=== PATIENT | female | born 1995 | race Caucasian/White ===

== ENCOUNTER 2020-04-07 21:30 | Emergency (ER) | payer MEDICAID ==
--- NOTE | 2020-04-07 21:56 | EDM.PDOC ---
ED HPI GENERAL MEDICAL PROBLEM - General Chief Complaint: ENT Problem Stated Complaint: dental pain Time Seen by Provider: 04/07/20 21:45 Source of Information: Reports: Patient, RN Notes Reviewed History Limitations: Reports: No Limitations - History of Present Illness INITIAL COMMENTS - FREE TEXT/NARRATIVE: This patient presents to the ED for evaluation of dental pain. She states she has had pain in the lower right back of her teeth for the past 2 weeks. She has not contacted a dentist. She denies fever, other concerns or complaints. She denies recent illnesses including fever, cough, sore throat, or shortness of breath. Onset: Gradual Onset Date: 03/24/20 Duration: Constant, Getting Worse Location: Reports: Face (mouth) Quality: Reports: Ache, Throbbing Improves with: Reports: None, Medication (some improvement with acetaminophen) Worsens with: Reports: None Treatments [employer]: Reports: Acetaminophen, Cold Therapy - Related Data Allergies Allergy/AdvReac Type Severity Reaction Status Date / Time No Known Allergies Allergy Verified 04/07/20 21:40 Home Meds: Home Meds NK [No Known Home Meds] 04/07/20 [History] Social & Family History - Tobacco Use Smoking Status *Q: Current Every Day Smoker Years of Tobacco use: 7 Packs/Tins Daily: 0.5 Used Tobacco, but Quit: No - Caffeine Use Caffeine Use: Reports: Coffee - Recreational Drug Use Recreational Drug Use: No ED ROS GENERAL - Review of Systems Review Of Systems: Comprehensive ROS is negative, except as noted in HPI. ED EXAM, GENERAL - Physical Exam Exam: See Below Exam Limited By: No Limitations General Appearance: Alert, No Apparent Distress Eye Exam: Bilateral Eye: PERRL Ears: Normal External Exam Nose: Normal Inspection Throat/Mouth: Normal Inspection, Normal Oropharynx, Normal Voice, No Airway Compromise, Other (tooth #32 quite tender with tapping; gingiva swollen over contact surface of the tooth. Tooth is intact with no evidence of damage, drainage. No swelling of cheek or face.) Head: Atraumatic, Normocephalic Neck: Normal Inspection, Supple, Full Range of Motion Respiratory/Chest: No Respiratory Distress, No Accessory Muscle Use Extremities: Normal Capillary Refill Neurological: Alert, Oriented Psychiatric: Normal Affect Skin Exam: Warm, Dry, Intact, Normal Color Course - Vital Signs Last Recorded V/S: Last Vital Signs Temp 36.4 C 04/07/20 21:43 Pulse 77 04/07/20 21:43 Resp 18 04/07/20 21:43 BP 114/83 04/07/20 21:43 Pulse Ox 98 04/07/20 21:43 - Re-Assessments/Exams Free Text/Narrative Re-Assessment/Exam: 04/07/20 22:00 This patient presents for evaluation of dental as detailed above. Evaluation today showed swelling of gingiva over tooth 32 that was acutely tender to percussion. There is no evidence of surrounding abscess. There is no evidence of deep space infection of the neck or any sepsis-like syndrome. The patient was offered and accepted a dental block for pain control. This was done with 1.5 mL bupivicaine mixed 1:1 with 1% lidocaine. The patient was strongly advised to seek dental care as soon as possible. I discussed with the patient that these medications did not represent definitive care for the tooth pain and definitive care by a dentist is needed. The patient is aware that I am not a dentist. The patient will return to the ED or emergency department for fever, uncontrolled pain, inability to tolerate PO, or onset of facial swelling. The patient expressed understanding. Departure - Departure Time of Disposition: 22:05 Disposition: Home, Self-Care 01 Condition: Good Clinical Impression: Pain, dental - Discharge Information Forms: ED Department Discharge Sepsis Event Note - Evaluation Sepsis Screening Result: No Definite Risk - Focused Exam Vital Signs: Vital Signs Temp Pulse Resp BP Pulse Ox 04/07/20 21:43 36.4 C 77 18 114/83 98 Date Exam was Performed: 04/07/20 Time Exam was Performed: 21:48
[2020-04-12] MEDS ORDERED: Lidocaine 1% 10 ML MDV INJECT ONE (15:26)
[2020-04-12] MEDS ORDERED: Bupivacaine 0.5% 10 ML SDV INJECT ONE (15:26)
== END 2020-04-07 22:09 | disposition home or self-care (01) ==
LOC: LB.ED 21:30
DX: K08.89 Other specified disorders of teeth and supporting structures (principal); F17.210 Nicotine dependence, cigarettes, uncomplicated
CPT/HCPCS: 64400; 99282-25

== ENCOUNTER 2020-04-09 22:03 | Emergency (ER) | payer MEDICAID ==
[2020-04-09] MEDS ORDERED: Acetaminophen/oxyCODONE 325-5 MG Tab ONE (22:10)
[2020-04-09] MEDS ORDERED: Acetaminophen/HYDROcodone 325-5 MG Tab PO ONE (22:18)
--- NOTE | 2020-04-09 22:27 | EDM.PDOC ---
ED HPI GENERAL MEDICAL PROBLEM - General Chief Complaint: General Stated Complaint: dental pain Time Seen by Provider: 04/09/20 22:25 Source of Information: Reports: Patient, RN Notes Reviewed History Limitations: Reports: No Limitations - History of Present Illness INITIAL COMMENTS - FREE TEXT/NARRATIVE: This patient presents to the ED for evaluation of dental pain. She was seen 48 hours ago for the same concern and was treated with a dental block. She states that it helped for a while but she has remained in a great deal of pain over the weekend. She states she has more swelling this time as well. She denies other concerns or complaints. 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 ED EXAM, GENERAL - Physical Exam Exam: See Below Throat/Mouth: Other ((tooth #32 quite tender with tapping; gingiva significantly swollen over contact surface and around the tooth. Tooth is intact with no evidence of damage, drainage. No swelling of cheek or face. Significant tenderness with palpation of cheek.) Head: Atraumatic, Normocephalic, Facial Tenderness. No: Facial Swelling Neck: Normal Inspection, Full Range of Motion Respiratory/Chest: No Respiratory Distress, No Accessory Muscle Use Neurological: Alert, Oriented Psychiatric: Normal Affect Skin Exam: Warm, Dry, Intact Course - Vital Signs Last Recorded V/S: Last Vital Signs Temp 36.5 C 04/09/20 22:23 Pulse 67 04/09/20 22:23 Resp 18 04/09/20 22:23 BP 141/55 H 04/09/20 22:23 Pulse Ox 96 04/09/20 22:23 - Orders/Labs/Meds Meds: Medications Discontinued Medications Generic Name Dose Route Start Last Admin Trade Name Jordi PRN Reason Stop Dose Admin Hydrocodone Bitart/Acetaminophen 2 tab 04/09/20 22:18 04/09/20 22:19 [place] 325-5 Mg PO 04/09/20 22:19 2 tab ONETIME ONE Administration - Re-Assessments/Exams Free Text/Narrative Re-Assessment/Exam: 04/09/20 22:30 This patient presents for evaluation of dental pain as detailed above. Evaluation today showed significant swelling and tenderness around tooth 32. Tooth was acutely tender to percussion. There is no evidence of surrounding abscess. There is no evidence of deep space infection of the neck or any sepsis- like syndrome. The patient was offered a dental block for pain control but refused stating it only helped for a couple of hours the last time. Patient was given a prescription for Percocet in a limited number for pain control. The patient was strongly advised to seek dental care as soon as possible. The patient is aware that I am not a dentist and that we do not refill pain medications in the ED. The patient will return to the emergency department for fever, uncontrolled pain, inability to tolerate PO, or onset of facial swelling. The patient expressed understanding. Departure - Departure Time of Disposition: 22:40 Disposition: Home, Self-Care 01 Condition: Good Clinical Impression: Pain, dental - Discharge Information Instructions: Acetaminophen; Oxycodone tablets Forms: ED Department Discharge Care Plan Goals: take pain medication as directed and follow up with a dentist tomorrow Sepsis Event Note - Evaluation Sepsis Screening Result: No Definite Risk - Focused Exam Vital Signs: Vital Signs Temp Pulse Resp BP Pulse Ox 04/09/20 22:23 36.5 C 67 18 141/55 H 96 Date Exam was Performed: 04/09/20 Time Exam was Performed: 22:28
== END 2020-04-09 22:35 | disposition home or self-care (01) ==
LOC: LB.ED 22:03
DX: K08.89 Other specified disorders of teeth and supporting structures (principal)
CPT/HCPCS: 99282; A9270-GY

== ENCOUNTER 2020-04-12 04:59 | Emergency (ER) | payer MEDICAID ==
[2020-04-12] MEDS ORDERED: Acetaminophen/HYDROcodone 325-5 MG Tab ONE (05:00)
[2020-04-12] MEDS: Ketorolac 60 MG/2 ML SDV IM ONE (05:21)
--- NOTE | 2020-04-12 13:01 | ER ---
HISTORY OF PRESENT ILLNESS: A 24-year-old female who comes in with complaints of dental pain, more precisely involving the wisdom teeth on the lower jaws. She has been seen for this multiple times. She has recently been to a dentist who informed her she needed to see an oral surgeon. The patient has not yet made arrangements to have this done. She is currently taking amoxicillin. She is not taking anything else over the last few hours for pain control, telling me that ibuprofen did not help her. OBJECTIVE: GENERAL APPEARANCE: The patient is awake and alert. No obvious distress. VITAL SIGNS: Reviewed as listed. ORAL: The patient has mild swelling and inflammation around both wisdom teeth on the lower jaws only. The wisdom teeth on the upper jaws do not appear to be causing any issues. I do not see any blister or pustule formation nor drainage. DIAGNOSIS: Impacted wisdom teeth. TREATMENT PLAN: Toradol 60 mg will be given IM. We will also send a few [place] tablets home with her to be taken as needed. I advised the patient she needs to follow up with a primary care provider who can manage her pain control until she has the wisdom teeth removed. She does not yet have a primary care provider, but she tells me she will find one. Diet should be soft food and when these medications run out, I advised the patient to alternate Tylenol with ibuprofen. CRS/MODL /[id number]
== END 2020-04-12 05:31 | disposition home or self-care (01) ==
LOC: LB.ED 04:59
DX: K01.1 Impacted teeth (principal)
CPT/HCPCS: 99282; 99283; A9270-GY; J1885

== ENCOUNTER 2020-04-24 14:25 | Emergency (ER) | payer MEDICAID ==
[2020-04-24] MEDS ORDERED: Ketorolac 60 MG/2 ML SDV IM ONE (15:20)
[2020-04-24] MEDS ORDERED: Ketorolac 30 MG/ML SDV ONE (15:29)
--- NOTE | 2020-04-24 15:42 | EDM.PDOC ---
ED HPI GENERAL MEDICAL PROBLEM - General Chief Complaint: General Stated Complaint: TOOTH PAIN x1.5 MONTHS Time Seen by Provider: 04/24/20 14:40 Source of Information: Reports: Patient History Limitations: Reports: No Limitations - History of Present Illness INITIAL COMMENTS - FREE TEXT/NARRATIVE: Patient presents emergency department with dental pain to her left upper premolar, patient states that this tooth broke about 2 to 3 months ago but did not start hurting until about 2 days ago. Patient states that she was seen by dentist sometime last week and was placed on amoxicillin but has not taken it yet as she is concerned about the side effects regarding her contraception, patient states only pain when tooth is exposed to air, cold foods or liquid. Patient denies fevers, chills, nausea, vomiting, difficulty with chewing, difficulty swallowing. 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 ED EXAM, GENERAL - Physical Exam Exam: See Below Exam Limited By: No Limitations General Appearance: Alert, WD/WN Throat/Mouth: Normal Lips, Normal Gums, Normal Oropharynx, Normal Voice, No Airway Compromise, Other (2nd premolar is broken with exposed dentin) Head: Atraumatic, Normocephalic Neck: Normal Inspection Respiratory/Chest: No Respiratory Distress, Normal Breath Sounds, No Accessory Muscle Use ED GENERAL MEDICAL PROCEDURES - Additional/Other Procedure(s) Other (Free Text) Procedure(s): Dental Block: Consent for operation or procedure: Risks and benefits discussed with patient and consent obtained Anesthesia: 3 ml of Bupivicaine The distribution of the middle superior alveolar and greater palatine nerve was identified. Bupivacaine was injected into that region. A short time later ad equate analgesia was obtained. Estimated Blood Loss: minimal Complications: The patient tolerated the procedure well without complications. Course - Vital Signs Last Recorded V/S: Last Vital Signs Temp 98 F 04/24/20 14:41 Pulse 102 H 04/24/20 14:41 Resp 18 04/24/20 14:41 BP 131/87 04/24/20 14:41 Pulse Ox 98 04/24/20 14:41 - Orders/Labs/Meds Meds: Medications Discontinued Medications Generic Name Dose Route Start Last Admin Trade Name Jordi PRN Reason Stop Dose Admin Ketorolac Tromethamine 15 mg 04/24/20 15:20 04/24/20 15:23 Toradol IM 04/24/20 15:21 15 mg ONETIME ONE Administration Ketorolac Tromethamine Confirm 04/24/20 15:29 04/24/20 15:24 Toradol Administered 04/24/20 15:30 Not Given Dose 30 mg .ROUTE .STK-MED ONE Departure - Departure Time of Disposition: 15:32 Disposition: Home, Self-Care 01 Condition: Good Clinical Impression: Broken tooth - Discharge Information *PRESCRIPTION DRUG MONITORING PROGRAM REVIEWED*: Yes *COPY OF PRESCRIPTION DRUG MONITORING REPORT IN PATIENT MACK: No Instructions: Tooth Injuries, [id number] Referrals: PCP,None [Primary Care Provider] - Forms: ED Department Discharge Additional Instructions: dental block with bupivicaine toradol take 440mg naproxen/Aleve twice a day for pain tylenol 1000mg four times a day for pain "Dental wax" at the pharmacy. make a pea sized ball and then place it in your tooth to cover nerve endings. follow up with a dentist for this RICHY for filling, cap, or altogether removal. Sepsis Event Note (ED) - Evaluation Sepsis Screening Result: No Definite Risk - Focused Exam Vital Signs: Vital Signs Temp Pulse Resp BP Pulse Ox 04/24/20 14:41 98 F 102 H 18 131/87 98 - Problem List & Annotations (1) Broken tooth SNOMED Code(s): 80255713 Code(s): S02.5XXA - FRACTURE OF TOOTH (TRAUMATIC), INIT FOR CLOS FX Status: Acute Annotation/Comment:: left side 2nd premolar Qualifiers: Encounter type: initial encounter Qualified Code(s): S02.5XXA - Fracture of tooth (traumatic), initial encounter for closed fracture - Assessment/Plan Assessment:: broken tooth Plan: dental block naproxen see a dentist richy dental wax application advised
== END 2020-04-24 15:37 | disposition home or self-care (01) ==
LOC: LB.ED 14:25
DX: K03.81 Cracked tooth (principal); F17.210 Nicotine dependence, cigarettes, uncomplicated
CPT/HCPCS: 64400; 96372; 99283; J1885

== ENCOUNTER 2020-06-12 11:07 | Emergency (ER) | payer MEDICAID | END 2020-06-12 12:00 | disposition left against medical advice (07) | LOC: LB.ED 11:07 | DX: Z20.828 Contact with and (suspected) exposure to other viral communicable diseases (principal) | CPT/HCPCS: 99281; U0002 ==

== ENCOUNTER 2021-02-06 11:05 | Emergency (ER) | payer MEDICAID ==
[2021-02-06] MEDS ORDERED: Bacitracin Oint 1 GM U/D Packet TOP ONE (11:19)
[2021-02-06] MEDS ORDERED: Diphtheria,Pertussis(Acell),Tetanus Vaccine 0.5 ML SDV IM ONE (11:19)
--- NOTE | 2021-02-06 11:26 | EDM.PDOC ---
ED HPI GENERAL MEDICAL PROBLEM - General Stated Complaint: LACERATION LEFT FOOT Time Seen by Provider: 02/06/21 11:10 Source of Information: Reports: Patient History Limitations: Reports: No Limitations - History of Present Illness INITIAL COMMENTS - FREE TEXT/NARRATIVE: patient presented to the ER with a c/o right foot pain after she stepped on a sharp edge while walking barefoot at home. She applied pressure on it and decided to come to the ER because of the pain. 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: Social & Family History - Caffeine Use Caffeine Use: Reports: Soda Review of Systems - Review of Systems Review Of Systems: See Below Constitutional: Reports: No Symptoms Eyes: Reports: No Symptoms Ears: Reports: No Symptoms Respiratory: Reports: No Symptoms Cardiovascular: Reports: No Symptoms GI/Abdominal: Reports: No Symptoms Musculoskeletal: Reports: No Symptoms ED EXAM, GENERAL - Physical Exam Exam: See Below Exam Limited By: No Limitations General Appearance: Alert, WD/WN, Anxious Head: Atraumatic Neck: Normal Inspection Respiratory/Chest: No Respiratory Distress Cardiovascular: Normal Peripheral Pulses Neurological: Alert, Oriented, Normal Cognition, No Motor/Sensory Deficits Skin Exam: Other (there is 2 cm superficial skin wound to the bottom of the right foot.) Course - Orders/Labs/Meds Orders: Active Orders 24 hr Category Date Time Status Vaccines to be Administered [RC] PER UNIT ROUTINE Care 02/06/21 11:20 Ordered Meds: Medications Discontinued Medications Generic Name Dose Route Start Last Admin Trade Name Freq PRN Reason Stop Dose Admin Bacitracin 1 dose 02/06/21 11:19 Bacitracin Oint 1 Gm U/D Packet TOP 02/06/21 11:20 ONETIME ONE Diphtheria/Tetanus/Acell Pertussis 0.5 ml 02/06/21 11:19 Diphtheria,Pertussis(Acell),Tetanus Vaccine 0.5 Ml Sdv IM 02/06/21 11:20 .ONCE ONE - Re-Assessments/Exams Free Text/Narrative Re-Assessment/Exam: 02/06/21 11:23 wound was washed and cleaned due to the superficial nature of the wound - no indication for sutures abx ointment was applied kerlex dressing Departure - Departure Time of Disposition: 11:24 Disposition: Home, Self-Care 01 Condition: Good Clinical Impression: Laceration of skin - Discharge Information *PRESCRIPTION DRUG MONITORING PROGRAM REVIEWED*: Not Applicable *COPY OF PRESCRIPTION DRUG MONITORING REPORT IN PATIENT MACK: Not Applicable Referrals: PCP,None [Primary Care Provider] - - Problem List & Annotations (1) Laceration of skin SNOMED Code(s): 927565637 Code(s): [id number] - Status: Acute Priority: Low Current Visit: Yes - Problem List Review Problem List Initiated/Reviewed/Updated: Yes - My Orders Last 24 Hours: My Active Orders 02/06/21 11:20 Vaccines to be Administered [RC] PER UNIT ROUTINE - Assessment/Plan Last 24 Hours: My Active Orders 02/06/21 11:20 Vaccines to be Administered [RC] PER UNIT ROUTINE Plan: - keep clean dressing on the wound daily - apply abx ointment - tylenol for pain as needed
== END 2021-02-06 11:45 | disposition home or self-care (01) ==
LOC: LB.ED 11:09
DX: S91.301A Unspecified open wound, right foot, initial encounter (principal); W26.8XXA Contact with other sharp object(s), not elsewhere classified, initial encounter; Y92.009 Unspecified place in unspecified non-institutional (private) residence as the place of occurrence of the external cause
CPT/HCPCS: 99282

== ENCOUNTER 2021-09-06 07:50 | Emergency (ER) | payer MEDICAID ==
--- NOTE | 2021-09-06 08:28 | EDM.PDOC ---
ED HPI GENERAL MEDICAL PROBLEM - General Chief Complaint: Gastrointestinal Problem Stated Complaint: VOMITTING Time Seen by Provider: 09/06/21 08:15 Source of Information: Reports: Patient, RN Notes Reviewed History Limitations: Reports: No Limitations - History of Present Illness INITIAL COMMENTS - FREE TEXT/NARRATIVE: This patient presents to the emergency department for evaluation of cough. She states she has had a cough for several days and has been having coughing episodes that have ended with vomiting. She has not had any vomiting exclusive to the cough. She has not had a fever with this. Her appetite is good and she is drinking fluids. She denies any diarrhea. She is a smoker. 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 ED EXAM, GI/ABD - Physical Exam Exam: See Below Exam Limited By: No Limitations General Appearance: Alert, No Apparent Distress Eyes: Bilateral: Normal Appearance Ears: Normal External Exam, Normal Canal, Normal TMs Nose: Normal Inspection Throat/Mouth: Normal Inspection, Normal Oropharynx, No Airway Compromise Head: Atraumatic, Normocephalic Neck: Normal Inspection, Supple, Non-Tender, Full Range of Motion Respiratory/Chest: No Respiratory Distress, Lungs Clear, Normal Breath Sounds, No Accessory Muscle Use, Other (No cough heard) Extremities: Normal Range of Motion Neurological: Alert, Oriented Psychiatric: Normal Affect, Normal Mood Skin Exam: Warm, Dry, Intact, Normal Color Course - Vital Signs Last Recorded V/S: Last Vital Signs Temp 36.6 C 09/06/21 08:00 Pulse 87 09/06/21 08:00 Resp 18 09/06/21 08:00 BP 108/68 09/06/21 08:00 Pulse Ox 96 09/06/21 08:00 - Re-Assessments/Exams Free Text/Narrative Re-Assessment/Exam: 09/06/21 11:18 This patient presents to the emergency department for evaluation of a cough. This dry cough is most consistent with an upper respiratory tract infection exacerbated by smoking. There are no signs at this time of other serious bacterial infection such as otitis media, retropharyngeal abscess, epiglottitis, peritonsillar abscess, strep pharyngitis, pneumonia, sinusitis, meningitis, bacteremia. Given her clear lungs, no fever, no hypoxia and no respiratory distress I do not feel she needs a chest x-ray at this point. The probability of a serious bacterial infection or pneumonia is very unlikely. There are no concerning gastrointestinal symptoms at this point and no signs of dehydration. She was given a prescription for an albuterol MDI to be used as needed 4 times a day for the next several days. She should follow-up with her primary care provider in 2 to 3 days if she is not better, sooner if she is worse in any way. Departure - Departure Time of Disposition: 08:30 Disposition: Home, Self-Care 01 Clinical Impression: Viral illness, Gastroenteritis - Discharge Information *PRESCRIPTION DRUG MONITORING PROGRAM REVIEWED*: Not Applicable *COPY OF PRESCRIPTION DRUG MONITORING REPORT IN PATIENT MACK: Not Applicable Prescriptions: Albuterol [Proventil HFA] 200 puff INH Q4H 5 Days #1 ea Instructions: Viral Gastroenteritis, Adult, [id number] Referrals: PCP,None [Primary Care Provider] - Forms: ED Department Discharge Sepsis Event Note (ED) - Evaluation Sepsis Screening Result: No Definite Risk - Focused Exam Vital Signs: Vital Signs Temp Temp Pulse Resp BP Pulse Ox 09/06/21 08:00 36.6 C 36.6 C 87 18 108/68 96
== END 2021-09-06 08:42 | disposition home or self-care (01) ==
LOC: LB.ED 07:50
DX: B34.9 Viral infection, unspecified (principal); K52.9 Noninfective gastroenteritis and colitis, unspecified; Z72.0 Tobacco use
CPT/HCPCS: 99283

== ENCOUNTER 2021-10-02 07:58 | Emergency (ER) | payer MEDICAID ==
[2021-10-02] MEDS ORDERED: Morphine 2 MG/ML SYRINGE IVPUSH PRN (08:13)
[2021-10-02] MEDS ORDERED: Morphine 2 MG/ML SYRINGE IVPUSH ONE (08:14)
[2021-10-02] MEDS ORDERED: Morphine 2 MG/ML SYRINGE ONE ×2 (08:25→08:48)
[2021-10-02] MEDS ORDERED: Ondansetron 4 MG/2 ML SDV ONE (08:25)
[2021-10-02] MEDS ORDERED: Ketorolac 30 MG/ML SDV IVPUSH ONE (08:46)
[2021-10-02] MEDS ORDERED: Tamsulosin 0.4 MG Cap.ER PO ONE (08:47)
[2021-10-02] MEDS: HYDROmorphone 2 MG/ML SDV IVPUSH ONE ×2 (08:52→09:19)
[2021-10-02] MEDS ORDERED: Sodium Chloride 0.9% 500 ML IV ONE (08:54)
[2021-10-02] MEDS ORDERED: HYDROmorphone 2 MG/ML SDV ONE ×2 (08:57→10:16)
[2021-10-02] MEDS ORDERED: Ketorolac 30 MG/ML SDV ONE (08:57)
[2021-10-02] MEDS ORDERED: Sodium Chloride 0.9% 500 ML IV SCH (09:00)
--- NOTE | 2021-10-02 09:06 | CT ---
DATE OF SERVICE: 10/02/2021 CLINICAL DATA: Renal Calculi Unenhanced abdomen and pelvic CT: Multi slice acquisition through the abdomen and pelvis without IV or oral contrast was performed. No priors. The lung bases are clear. The unenhanced liver appears normal. The gallbladder appears normal. The spleen appears normal. The pancreas appears normal. The right and left adrenals appear normal. No nephrocalcinosis or nephrolithiasis. There is a 4 mm distal ureteral calculi on the right located at the S2 level. No significant hydronephrosis or hydroureter proximal to it. There is a small amount of fluid within the bladder. It appears normal. No evidence of appendicitis. No free air. No free fluid. No dilated loops of bowel. No adenopathy. No aortic aneurysm. There is a small fat containing umbilical hernia. No other significant findings. Impression: 4 mm distal right ureteral calculi. MTDD
--- NOTE | 2021-10-02 09:54 | EDM.PDOC ---
ED HPI GENERAL MEDICAL PROBLEM - General Chief Complaint: Abdominal Pain Stated Complaint: BACK PAIN Time Seen by Provider: 10/02/21 08:00 Source of Information: Reports: Patient History Limitations: Reports: No Limitations - History of Present Illness INITIAL COMMENTS - FREE TEXT/NARRATIVE: 26-year-old female presents the ED complaining of right flank and back pain. Patient has had pain for approximately 2 days. It was an acute onset. Movement makes it worse, urination makes it worse. Patient describes a sharp stabbing pain as a 10/10 on the pain scale. Pain radiates around to the flank and abdomen inferiorly. Positive for: Nausea vomiting, diaphoresis, shortness of breath due to pain. Patient denies any other complaints. 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) Right Abdomen Pain Score (Numeric/FACES): 10 - Related Data Allergies Allergy/AdvReac Type Severity Reaction Status Date / Time No Known Allergies Allergy Verified 10/02/21 08:34 Home Meds: Home Meds Albuterol [Proventil HFA] 200 puff INH ASDIRECTED PRN 10/02/21 [History] HYDROmorphone [Dilaudid] 2 mg PO Q4H PRN #16 tab 10/02/21 [Rx] Ondansetron [Zofran ODT] 4 mg PO Q6H PRN #10 tab.dis 10/02/21 [Rx] Tamsulosin [Flomax] 0.4 mg PO DAILY #14 cap.er 10/02/21 [Rx] Past Medical History - Past Health History Medical/Surgical History: Denies Medical/Surgical History Cardiovascular History: Reports: None Genitourinary History: Reports: Pyelonephritis Other Genitourinary History: stents placed for kidney stones "3 years ago, and was removed in 2018 at the time of for 2nd child" DATA TYPIST History: Reports: Other DATA TYPIST History: - Past Surgical History Female Surgical History: Reports: Cystoscopy, Ureteral Stent Social & Family History - Family History Family Medical History: Unobtainable - Tobacco Use Tobacco Use Status *Q: Current Every Day Tobacco User Years of Tobacco use: 9 Packs/Tins Daily: 0.5 - Caffeine Use Caffeine Use: Reports: Soda - Recreational Drug Use Recreational Drug Use: Yes Drug Use in Last 12 Months: Yes Recreational Drug Type: Reports: Marijuana/Hashish Recreational Drug Use Frequency: Daily ED ROS GENERAL - Review of Systems Review Of Systems: Comprehensive ROS is negative, except as noted in HPI. ED EXAM, RENAL/ - Physical Exam Exam: See Below Text/Narrative:: 26-year-old female found in [place] 1 ED. Patient lying in semifowler position. ABCs intact. Patient in obvious distress secondary to pain. Speaking in full sentences. No obvious trauma, alert and oriented through 3 GCS 4 5 6. Exam Limited By: No Limitations General Appearance: Alert, WD/WN, No Apparent Distress Eye Exam: Bilateral Eye: EOMI, PERRL Ears: Normal External Exam, Normal Canal, Hearing Grossly Normal, Normal TMs Nose: Normal Inspection, No Blood Throat/Mouth: Normal Lips, Normal Oropharynx, Normal Voice, No Airway Compromise Head: Atraumatic, Normocephalic Respiratory/Chest: No Respiratory Distress, Lungs Clear, Normal Breath Sounds, No Accessory Muscle Use, Chest Non-Tender Cardiovascular: Normal Peripheral Pulses, Regular Rate, Rhythm, No Edema, No Gallop, No JVD, No Murmur, No Rub GI/Abdominal: Soft, No Distention, No Mass, Tender (Right flank, right CVA, right lower quadrant) Back Exam: CVA Tenderness (R) Extremities: Normal Inspection, Normal Range of Motion, Non-Tender, Normal Capillary Refill, No Pedal Edema Neurological: Alert, Oriented Psychiatric: Normal Affect, Tearful Skin Exam: Warm, Dry, Intact, Normal Color, No Rash Lymphatic: No Adenopathy Course - Vital Signs Last Recorded V/S: Last Vital Signs Temp 97.7 F 10/02/21 08:52 Pulse 88 10/02/21 08:52 Resp 16 10/02/21 08:52 BP 135/104 H 10/02/21 08:52 Pulse Ox 92 L 10/02/21 08:52 - Orders/Labs/Meds Orders: Active Orders 24 hr Category Date Time Status CULTURE URINE [RM] Stat Lab 10/02/21 10:20 Received Labs: Laboratory Tests 10/02/21 10/02/21 10/02/21 Range/Units 08:09 08:09 10:20 WBC 7.0 (4.0-11.0) K/uL RBC 4.38 (3.80-5.80) M/uL Hgb 13.6 (11.5-16.5) g/dL Hct 39.3 (37.0-47.0) % MCV 90 (76-96) fL MCH 31.1 (27.0-32.0) pg MCHC 34.6 (31.0-35.0) g/dL RDW 13.8 (11.0-16.0) % Plt Count 241 (150-500) K/uL MPV 10.7 H (6.0-10.0) fL Neut % (Auto) 54.4 (45.0-70.0) % Lymph % (Auto) 35.7 (20.0-40.0) % Dillon % (Auto) 8.8 (3.0-10.0) % Eos % (Auto) 0.7 L (1.0-5.0) % Baso % (Auto) 0.4 (0.0-0.5) % Neut # (Auto) 3.81 (2.00-7.50) K/uL Lymph # (Auto) 2.50 (1.50-4.00) K/uL Dillon # (Auto) 0.62 (0.20-0.80) K/uL Eos # (Auto) 0.05 (0.04-0.40) K/uL Baso # (Auto) 0.03 (0.02-0.10) K/uL Sodium 138 (136-145) mmol/L Potassium 3.7 (3.5-5.1) mmol/L Chloride 105 (98-107) mmol/L Carbon Dioxide 19.5 L (21.0-32.0) mmol/L Anion Gap 17.2 H (5.0-15.0) mmol/L BUN 12 (8-26) mg/dL Creatinine 0.94 (0.55-1.02) mg/dL Est Cr Clr Drug Dosing 88.97 mL/min Estimated GFR (MDRD) > 60 (>60) MLS/MIN BUN/Creatinine Ratio 12.8 (6-25) Glucose 89 (74-100) mg/dL Calcium 9.5 (8.5-10.1) mg/dL Total Bilirubin 0.6 (0.0-1.0) mg/dL AST 38 H (15-37) U/L ALT 53 (12-78) U/L Alkaline Phosphatase 71 (46-116) U/L Total Protein 8.2 (6.4-8.2) g/dL Albumin 4.4 (3.4-5.0) g/dL Globulin 3.8 (2.2-4.2) g/dL Albumin/Globulin Ratio 1.2 (0.8-2.0) Lipase 71 L (73-393) U/L Urine Color Yellow Urine Appearance Clear (CLEAR) Urine pH 7.0 (5.0-8.0) Ur Specific [place] 1.020 (1.003-1.030) Urine Protein Negative (NEGATIVE) mg/dL Urine Glucose (UA) Negative (NEGATIVE) mg/dL Urine Ketones 80 H (NEGATIVE) mg/dL Urine Occult Blood Trace-intact H (NEGATIVE) Urine Nitrite Negative (NEGATIVE) Urine Bilirubin Negative (NEGATIVE) Urine Urobilinogen 0.2 (0.2-1.0) E.U./dL Ur Leukocyte Esterase Trace H (NEGATIVE) Urine RBC 0-5 H /HPF Urine WBC 5-10 H /HPF Ur Squamous Epith Cells Many /HPF Meds: Medications Discontinued Medications Generic Name Dose Route Start Last Admin Trade Name Freq PRN Reason Stop Dose Admin Hydromorphone HCl 2 mg 10/02/21 08:46 10/02/21 09:19 Hydromorphone 2 Mg/Ml Sdv IVPUSH 10/02/21 08:47 1 mg ONETIME ONE Administration Hydromorphone HCl Confirm 10/02/21 08:57 10/02/21 08:56 Hydromorphone 2 Mg/Ml Sdv Administered 10/02/21 08:58 Not Given Dose 2 mg .ROUTE .STK-MED ONE Hydromorphone HCl Confirm 10/02/21 10:16 10/02/21 10:11 Hydromorphone 2 Mg/Ml Sdv Administered 10/02/21 10:17 Not Given Dose 2 mg .ROUTE .STK-MED ONE Hydromorphone HCl 2 mg 10/02/21 10:20 10/02/21 10:23 Hydromorphone 2 Mg/Ml Sdv IVPUSH 10/02/21 10:21 2 mg ONETIME ONE Administration Hydromorphone HCl 2 mg 10/02/21 12:30 10/02/21 13:00 Hydromorphone 2 Mg Tab PO 2 mg Q4H JANIS Administration Hydroxyzine HCl 50 mg 10/02/21 10:20 10/02/21 12:38 Hydroxyzine Hcl 50 Mg/Ml Sdv IM 10/02/21 10:21 Not Given ONETIME ONE Hydroxyzine HCl 50 mg 10/02/21 11:43 10/02/21 13:00 Hydroxyzine Hcl 25 Mg Tab PO 10/02/21 11:44 50 mg ONETIME ONE Administration Sodium Chloride 500 mls @ 999 drops/hr 10/02/21 08:54 10/02/21 08:45 Normal Saline IV 10/02/21 16:24 999 drops/hr .BOLUS ONE Administration Sodium Chloride 500 mls @ 250 mls/hr 10/02/21 09:00 10/02/21 09:22 Normal Saline IV 250 mls/hr ASDIRECTED JANIS Administration Ketorolac Tromethamine 30 mg 10/02/21 08:46 10/02/21 08:49 Ketorolac 30 Mg/Ml Sdv IVPUSH 10/02/21 08:47 30 mg ONETIME ONE Administration Ketorolac Tromethamine Confirm 10/02/21 08:57 10/02/21 08:56 Ketorolac 30 Mg/Ml Sdv Administered 10/02/21 08:58 Not Given Dose 30 mg .ROUTE .STK-MED ONE Morphine Sulfate 2 mg 10/02/21 08:13 10/02/21 08:40 Morphine 2 Mg/Ml Syringe IVPUSH 2 mg ONETIME PRN Administration Abdominal Pain Morphine Sulfate 2 mg 10/02/21 08:14 10/02/21 08:12 Morphine 2 Mg/Ml Syringe IVPUSH 10/02/21 08:15 2 mg ONETIME ONE Administration Morphine Sulfate Confirm 10/02/21 08:25 10/02/21 08:56 Morphine 2 Mg/Ml Syringe Administered 10/02/21 08:26 Not Given Dose 2 mg .ROUTE .STK-MED ONE Morphine Sulfate Confirm 10/02/21 08:48 10/02/21 08:56 Morphine 2 Mg/Ml Syringe Administered 10/02/21 08:49 Not Given Dose 2 mg .ROUTE .STK-MED ONE Ondansetron HCl Confirm 10/02/21 08:25 10/02/21 08:56 Ondansetron 4 Mg/2 Ml Sdv Administered 10/02/21 08:26 Not Given Dose 4 mg .ROUTE .STK-MED ONE Tamsulosin HCl 0.4 mg 10/02/21 08:47 10/02/21 09:04 Tamsulosin 0.4 Mg Cap.Er PO 10/02/21 08:48 0.4 mg ONETIME ONE Administration Departure - Departure Time of Disposition: 11:33 Disposition: Home, Self-Care 01 Clinical Impression: Ureteral stone Abdominal pain Qualifiers: Abdominal location: unspecified location Qualified Code(s): R10.9 - Unspecified abdominal pain - Discharge Information *PRESCRIPTION DRUG MONITORING PROGRAM REVIEWED*: No *COPY OF PRESCRIPTION DRUG MONITORING REPORT IN PATIENT MACK: No Prescriptions: HYDROmorphone [Dilaudid] 2 mg PO Q4H PRN #16 tab PRN Reason: Abdominal Pain Tamsulosin [Flomax] 0.4 mg PO DAILY #14 cap.er Ondansetron [Zofran ODT] 4 mg PO Q6H PRN #10 tab.dis PRN Reason: Nausea Instructions: Kidney Stones, [id number], Dietary Guidelines to Help Prevent Kidney Stones Referrals: PCP,None [Primary Care Provider] - Forms: ED Department Discharge Sepsis Event Note (ED) - Evaluation Sepsis Screening Result: No Definite Risk - Focused Exam Vital Signs: Vital Signs Temp Pulse Resp BP Pulse Ox 10/02/21 08:52 97.7 F 88 16 135/104 H 92 L - Problem List Review Problem List Initiated/Reviewed/Updated: Yes - My Orders Last 24 Hours: My Active Orders 10/02/21 10:20 CULTURE URINE [RM] Stat - Assessment/Plan Last 24 Hours: My Active Orders 10/02/21 10:20 CULTURE URINE [RM] Stat Assessment:: 26-year-old female presents with right flank pain. Differential diagnosis considered including urolithiasis, UTI, pyelonephritis, appendicitis, colitis, gastrointestinal bleed, diverticulitis, volvulus, ectopic , cyst, . Signs and symptoms symptoms consistent with urolithiasis this was confirmed on CT. Patient's pain is due to a 4 mm stone in the ureter. Patient's pain is controlled in the ED on Dilaudid, and nausea is controlled with Zofran. Patient will be given Flomax. There are no signs of an infected stone. Tolerates p.o. Patient is hemodynamically stable in the ED and plan is home with abdominal pain recheck by primary care physician. They may return to the ED if symptoms worsen. Urolithiasis precautions for home were given the questions were answered to their satisfaction. Patient understood treatment plan and agreed Plan: ABC, history, exam, IV, labs, morphine, Zofran, tamsulosin, Dilaudid, CT, plan is to control patient's pain convert her to oral medications sent home with same including tamsulosin screener for urine and to follow-up with primary care provider 1. Ureter stone Tamsulosin, normal saline bolus 2. Pain Morphine, Dilaudid 3. Nausea vomiting Zofran
[2021-10-02] MEDS ORDERED: hydrOXYzine HCl 50 MG/ML SDV IM ONE (10:20)
[2021-10-02] MEDS ORDERED: HYDROmorphone 2 MG/ML SDV IVPUSH ONE (10:20)
[2021-10-02] MEDS ORDERED: hydrOXYzine HCl 25 MG Tab PO ONE (11:43)
[2021-10-02] MEDS ORDERED: HYDROmorphone 2 MG Tab PO SCH (12:30)
== END 2021-10-02 13:28 | disposition home or self-care (01) ==
LOC: LB.ED 07:58
DX: N20.1 Calculus of ureter (principal); Z72.0 Tobacco use
CPT/HCPCS: 36415; 74176; 80053; 81001; 83690; 85025; 87086; 87088; 87186; 96374; 96375; 96376; 99284; A9270; J1170; J1885; J2270; J7030; J7040

== ENCOUNTER 2021-10-03 16:09 | Emergency (ER) | payer MEDICAID ==
[2021-10-03] MEDS ORDERED: Acetaminophen/oxyCODONE 325-5 MG Tab ONE (17:00)
[2021-10-03] MEDS ORDERED: Lidocaine 1% with EPINEPHrine 1:100,000 20 ML MDV INJECT ONE (17:16)
[2021-10-03] MEDS ORDERED: Diphtheria,Pertussis(Acell),Tetanus Vaccine 0.5 ML SDV IM ONE (17:16)
[2021-10-03] MEDS ORDERED: LORazepam 2 MG/ML SDV IM PRN (17:22)
--- NOTE | 2021-10-03 17:22 | EDM.PDOC ---
ED HPI GENERAL MEDICAL PROBLEM - General Chief Complaint: Laceration Stated Complaint: LACERATION Time Seen by Provider: 10/03/21 16:15 Source of Information: Reports: Patient, EMS, EMS Notes Reviewed, RN Notes Reviewed History Limitations: Reports: No Limitations, Other (hysterical) - History of Present Illness INITIAL COMMENTS - FREE TEXT/NARRATIVE: This patient presents to the emergency department via EMS for evaluation of an arm laceration. She is quite hysterical at presentation and but is able to state that she was trying to close a window on her house door when her arm went through the glass and she lacerated her upper arm with glass. She denies other injuries or concerns. She was seen in the emergency department yesterday and diagnosed with kidney stones. She was given hydromorphone for home use for which she has used a number of tablets in the past 24 hours. . Onset: Today - Related Data Allergies Allergy/AdvReac Type Severity Reaction Status Date / Time No Known Allergies Allergy Verified 10/02/21 08:34 Home Meds: Home Meds Albuterol [Proventil HFA] 200 puff INH ASDIRECTED PRN 10/02/21 [History] HYDROmorphone [Dilaudid] 2 mg PO Q4H PRN #16 tab 10/02/21 [Rx] Ondansetron [Zofran ODT] 4 mg PO Q6H PRN #10 tab.dis 10/02/21 [Rx] Tamsulosin [Flomax] 0.4 mg PO DAILY #14 cap.er 10/02/21 [Rx] Past Medical History - Past Health History Medical/Surgical History: Denies Medical/Surgical History Cardiovascular History: Reports: None Genitourinary History: Reports: Pyelonephritis Other Genitourinary History: stents placed for kidney stones "3 years ago, and was removed in 2018 at the time of for 2nd child" 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 History: - Past Surgical History Female Surgical History: Reports: Cystoscopy, Ureteral Stent Social & Family History - Family History Family Medical History: Unobtainable - Caffeine Use Caffeine Use: Reports: Soda ED ROS GENERAL - Review of Systems Review Of Systems: Unable To Obtain Reason Not Obtained: Patient hysterical ED EXAM, SKIN/RASH Exam: See Below Exam Limited By: Other (Hysterical) General Appearance: Severe Distress Ears: Normal External Exam Nose: Normal Inspection Throat/Mouth: Normal Inspection Head: Atraumatic, Normocephalic Neck: Normal Inspection, Supple, Full Range of Motion Respiratory/Chest: No Respiratory Distress, No Accessory Muscle Use Cardiovascular: Normal Peripheral Pulses, Regular Rate, Rhythm Extremities: Normal Inspection, Normal Range of Motion, Other (Laceration to inner aspect of right upper arm) Neurological: Alert, Oriented Psychiatric: Anxious, Tearful Skin: Warm, Dry ED SKIN PROCEDURES - Laceration/Wound Repair Right Medial Arm Appearance: Subcutaneous, Clean Distal NVT: Neuro & Vascular Intact, No Tendon Injury Anesthetic Type: Local Local Anesthesia - Lidocaine (Xylocaine): 1% with EPI Local Anesthetic Volume: Other (20) Saline Irrigation (cc's): 500 (With Hibiclens) Exploration/Debridement/Repair: Wound Explored, In a Bloodless Field, Explored to Base, Minimal Debridement (She did not like that either 2mg is very prior), Wound Margins Revised Closed with: Sutures (Did you say that) Lac/Wound length In cm: 9 Suture Size: 4-0 # of Sutures: 13 (10 half buried buried mattress sutures placed in majority of wound; 3 simple interrupted sutures placed at wound ends.) Suture Type: Mattress Suture Size: 5-0 # of Sutures: 5 (deep) Sterile Dressing Applied: Provider Tetanus Status Addressed: Yes Complications: No Course - Orders/Labs/Meds Orders: Active Orders 24 hr Category Date Time Status Vaccine to be Administered/Admin Charge [RC] ASDIRECTED Care 10/03/21 17:17 Ordered DiphthShira(Acell),Tet Vac [Boostrix] Med 10/03/21 17:16 Once 0.5 ml IM .ONCE ONE Lidocaine 1% w/EPINEPHrine [Xylocaine 1% with Med 10/03/21 17:16 Once EPINEPHrine 1:100,000] 20 ml INJECT ONETIME ONE Tranexamic Acid [Cyklokapron] Med 10/03/21 17:14 Once 500 mg .XX ONETIME ONE - Re-Assessments/Exams Free Text/Narrative Re-Assessment/Exam: 10/03/21 17:29 This patient presents to the emergency department for evaluation of a laceration. She has an extensive laceration to her right upper arm from glass. There is evidence of arterial bleeding and she arrives with a tourniquet in place. The tourniquet time was placed by EMS at 1553. Upon arrival to the emergency room TXA was inserted subcutaneously around the bleeding artery and the artery was cauterized with heat. The bleeding was stopped and the tourniquet was released at 1620. The wound was then explored and was noted to be through the subcutaneous layer in the middle third. She has normal motor function and normal distal CMS. There were no signs of foreign body. There was no bony damage. There is also no in evidence of muscular or tendon damage. The wound was closed as noted above. Possible complications include infection and scarring and these were discussed with the patient. A pressure dressing was placed on the wound after it was covered with bacitracin and she was instructed to follow-up in the clinic for a wound recheck in 48 hours. Yesterday while in the emergency department for her kidney stone she was given Dilaudid for pain. She was discharged to home with a prescription for Dilaudid, 2 mg tablets. She did bring these with her and was noted to have used 7 of these tablets in the past 24 hours. While assessing the patient I did ask her about her kidney stones and she told me that she was not having any pain and did not "know they were there." When I discussed her pain medication usage with her she states the pain has been very severe and she has needed the medication every 2 hours. I did retain the remaining 9 tablets in the bottle and substitute this with Percocet, 5/325: 10 tablets to be used 1 every 6 hours. Her Dilaudid tablets were disposed of in the appropriate fashion by nursing. The patient's questions were answered and she was stable at the time she was discharged to home. Departure - Departure Time of Disposition: 17:20 Disposition: Home, Self-Care Clinical Impression: Laceration, Artery dissection - Discharge Information *PRESCRIPTION DRUG MONITORING PROGRAM REVIEWED*: No *COPY OF PRESCRIPTION DRUG MONITORING REPORT IN PATIENT MACK: No Instructions: Laceration Care, Adult Referrals: PCP,None [Primary Care Provider] - Forms: ED Department Discharge Additional Instructions: Leave drsg in place. Return to ED if moderate bleeding through dressing.. Return to clinic Friday for dressing change. Take Oxycodone 5mg/325mg on tab every 6 hours as needed for pain - My Orders Last 24 Hours: My Active Orders 10/03/21 17:14 Tranexamic Acid [Cyklokapron] 500 mg .XX ONETIME ONE 10/03/21 17:16 Diphth,Pertuss(Acell),Tet Vac [Boostrix] 0.5 ml IM .ONCE ONE Lidocaine 1% w/EPINEPHrine [Xylocaine 1% with EPINEPHrine 1:100,000] 20 ml INJECT ONETIME ONE 10/03/21 17:17 Vaccine to be Administered/Admin Charge [RC] ASDIRECTED - Assessment/Plan Last 24 Hours: My Active Orders 10/03/21 17:14 Tranexamic Acid [Cyklokapron] 500 mg .XX ONETIME ONE 10/03/21 17:16 Diphth,Pertuss(Acell),Tet Vac [Boostrix] 0.5 ml IM .ONCE ONE Lidocaine 1% w/EPINEPHrine [Xylocaine 1% with EPINEPHrine 1:100,000] 20 ml INJECT ONETIME ONE 10/03/21 17:17 Vaccine to be Administered/Admin Charge [RC] ASDIRECTED
== END 2021-10-03 17:09 | disposition home or self-care (01) ==
LOC: LB.ED 16:09
DX: S41.111A Laceration without foreign body of right upper arm, initial encounter (principal); I77.70 Dissection of unspecified artery; Z79.899 Other long term (current) drug therapy; W25.XXXA Contact with sharp glass, initial encounter
CPT/HCPCS: 12004; 99282; A0425; A0429; A9270